=== PATIENT | female | born 1995 | race Caucasian/White ===

== ENCOUNTER 2016-12-20 08:50 | Observation (INO) ==
[2016-12-20] MEDS ORDERED: XYLOCAINE MPF 1% ONE (09:05)
[2016-12-20 09:10] LABS: MANUAL DIFF NEEDED? NO
[2016-12-20 09:29] LABS: BASO% 0.6 % (0.0-0.8); EOS# 0.21 X1000 (0.0-0.7); EOS% 2.4 % (0.0-10.0); HEMATOCRIT 39.3 % (37.0-47.0); HEMOGLOBIN 13.1 g/dL (12.0-16.0); IMM GRAN# 0.01 X1000 (0.0-0.04); IMM GRAN% 0.1 % (0.0-0.5); LYMPH# 2.78 X1000 (1.2-3.4); LYMPH% 31.9 % (20.5-51.1); MCH 28.8 PG (27-31); MCHC 33.3 g/dL (33-37); MCV 86.4 FL (81-99); MONO# 0.91 X1000 (0.11-0.59); MONO% 10.4 % (1.7-9.3); MPV 10.1 FL (7.4-10.4); NEUT% 54.6 % (42.2-75.2); PLT 303 X1000 (130-400); RBC 4.55 XMIL (4.2-5.4)
[2016-12-20 09:34] LABS: AGAP 9; ALBUMIN 4.4 g/dL (3.5-5.0); ALKALINE PHOSPHATASE 71 U/L (32-104); BUN 8 mg/dL (8-22); CALCIUM 8.7 mg/dL (8.8-10.2); CHLORIDE 99 mmol/L (98-107); COSMO 270; GOT 20 U/L (10-30); GPT 14 U/L (10-36); POTASSIUM 3.4 mmol/L (3.5-5.1); SODIUM 137 mmol/L (136-145); TCO2 29 mmol/L (25-35); TOTAL PROTEIN 7.4 g/dL (6.3-8.3)
[2016-12-20 09:45] LABS: FREE T4 1.19 ng/dL (0.93-1.70)
[2016-12-20] MEDS ORDERED: NS 1,000 ML IV ONE ×3 (09:58→11:49)
[2016-12-20] MEDS ORDERED: ZOFRAN PO PRN (09:58)
[2016-12-20 10:33] LABS: ACETAMINOPHEN < 1.2 ug/mL (10-30)
[2016-12-20] MEDS ORDERED: ZOFRAN ODT PO PRN (11:56)
--- NOTE | 2016-12-20 15:02 | HISTORY AND PHYSICAL ---
PRIMARY CARE PHYSICIAN: Mikala Ji. CHIEF COMPLAINT: Of a suicidal attempt via drug overdose and self-inflicted lacerations to her right arm, left arm and right leg. HISTORY OF PRESENTING ILLNESS: This is a 21-year-old female who presented to the ER via EMS after she was found in the bathtub by her mom with self-inflicted razor blade lacerations to her right arm, left arm and right leg. The patient states that this was a suicide attempt. She took 40 0.5 mg Xanax that she got from a friend. Also stated that she "smoked crack" approximately 6 hours prior to arrival. She states she has had a long history and stark with major depression and she takes Paxil and Lamictal and states that she has been taking those as prescribed. So she had the areas to her right arm, left arm and right leg sutured in the emergency room. They are currently covered with a dry dressing. She is lethargic but alert and answering questions appropriately and being admitted to the intensive care unit for further evaluation and treatment. PAST MEDICAL HISTORY: Of major depressive disorder and GERD. PAST SURGICAL HISTORY: None. FAMILY HISTORY: Her mom had major depressive disorder also. SOCIAL HISTORY: She currently lives with family. ALLERGIES: Hydrocodone. HOME MEDICATIONS: She takes bupropion 100 mg p.o. daily, Prozac 40 mg p.o. daily and Lamictal 150 mg p.o. daily. We will begin those in the a.m. LABORATORY DATA: Showed a white blood cell count of 8.72, hemoglobin 13.1, hematocrit 39.3, platelets 303,000. Sodium of 137, potassium 3.4, chloride 99, CO2 29, BUN of 8 creatinine 0.8, glucose 66, TSH of 4.12, free T4 of 1.19. Salicylate level was less than 3. Acetaminophen level less than 1.2. Serum alcohol level showed none detected. REVIEW OF SYSTEMS: She denied any fever, chills, blurred vision, dizziness, chest pain, coughing, shortness of breath. She denies any constipation, diarrhea, burning or hurting with urination. PHYSICAL EXAMINATION: VITAL SIGNS: Temperature 97.2 degrees, pulse 68, respirations 18, blood pressure was 94/61 saturating 96% on room air. GENERAL: This is a 21-year-old female who is lying in the bed, answers questions appropriately but is noted to be lethargic. HEENT: Normocephalic, atraumatic. Pupils are equal, round, reactive to light but are dilated at this time. The extraocular movements are intact. The oropharynx and nares are clear. NECK: Supple. LUNGS: Clear to auscultation bilaterally with equal lung expansion and chest wall movement. HEART: With regular rate and rhythm. No murmurs, rubs, or gallops. ABDOMEN: Soft, nontender, nondistended. Bowel sounds are present x4 quadrants. EXTREMITIES: No clubbing, cyanosis. She has sutures to her right forearm, left forearm and right thigh. Dressing currently dry and intact. NEUROLOGICAL: The cranial nerves 2-12 appear grossly intact. ASSESSMENT: 1. Drug overdose. 2. Suicide attempt. 3. Multiple self-inflicted lacerations. 4. Major depressive disorder. PLAN: She was admitted to the Intensive Care Unit at [facility], placed on O2 per protocol. Regular diet. We are going to check a urine drug screen, a urine test. Place her on normal saline at 150 mL an hour. She received 1 mL of normal saline in the ER. Will start her home medications tomorrow and we will consult [facility] tomorrow after we ensure that she is medically stable. Dictated by KESHIA Edmonds for Edmar Simons MD cc: KESHIA Trinidad MD
[2016-12-20 17:58] LABS: BILIRUBIN URINE NEGATIVE (NEGATIVE); BLOOD URINE NEGATIVE (NEGATIVE); CLARITY CLEAR (CLEAR); COLOR YELLOW; GLUCOSE URINE NEGATIVE (NEGATIVE); LEUKOCYTES URINE 1+ (NEGATIVE); NITRITE URINE NEGATIVE (NEGATIVE); PH URINE 6.5; PROTEIN URINE TRACE mg/dL (NEGATIVE); SP GRAVITY URINE 1.015; UR AMPHETAMINES QUAL NONE DETECTED (NONE DETECT); UR BARBITUATES QUAL NONE DETECTED (NONE DETECT); UR BENZODIAZEPIN QUAL PRESUMPTIVE POSITIVE (NONE DETECT); UR CANNABINOIDS QUAL PRESUMPTIVE POSITIVE (NONE DETECT); UR COCAINE QUAL PRESUMPTIVE POSITIVE (NONE DETECT); UR MDMA QUAL NONE DETECTED (NONE DETECT); UR METHADONE QUAL NONE DETECTED (NONE DETECT); UR METHAMPHETAMINE QUAL NONE DETECTED (NONE DETECT); UR OPIATES QUAL NONE DETECTED (NONE DETECT); UR OXYCODONE QUAL NONE DETECTED (NONE DETECT); UR PCP QUAL NONE DETECTED (NONE DETECT); UR TCA QUAL NONE DETECTED (NONE DETECT); UROBILINOGEN URINE NORMAL
[2016-12-20 17:59] LABS: URINE CULTURE PL NEEDED? YES; URINE EPITHELIAL CELLS <10 /HPF (<10); URINE SOURCE CLEAN CATCH; URINE WBC <10 /HPF (<10)
[2016-12-21] MEDS: LAMICTAL PO SCH (08:38)
[2016-12-21] MEDS: PROZAC PO SCH (08:39)
[2016-12-21] MEDS: WELLBUTRIN PO SCH (08:39)
[2016-12-21 15:05] LABS: AGAP 9; ALBUMIN 3.7 g/dL (3.5-5.0); ALKALINE PHOSPHATASE 61 U/L (32-104); BUN 7 mg/dL (8-22); CALCIUM 8.3 mg/dL (8.8-10.2); CHLORIDE 105 mmol/L (98-107); COSMO 279; GOT 16 U/L (10-30); GPT 12 U/L (10-36); SODIUM 141 mmol/L (136-145); TCO2 27 mmol/L (25-35); TOTAL BILIRUBIN < 0.15 mg/dL (0.20-1.00); TOTAL PROTEIN 6.2 g/dL (6.3-8.3)
[2016-12-22] MEDS: WELLBUTRIN PO SCH (08:07)
[2016-12-22] MEDS: LAMICTAL PO SCH (08:07)
[2016-12-22] MEDS: PROZAC PO SCH (08:07)
--- NOTE | 2016-12-22 08:33 | PROGRESS NOTE ---
DATE: 12/21/2016 SUBJECTIVE: Patient without any new complaints. States that her arms hurt and her legs hurt from where she has multiple lacerations. PHYSICAL: Vital Signs: Temperature 98, pulse 77, respiratory 17, BP 99/66 sat 97% on room air. General: Patient is awake, alert, oriented. She is currently in no respiratory distress. Speech is regular. Memory intact. Neck: Supple. CV: Regular rate. Chest: Clear, nonlabored. Abdomen: Soft. Extremities: Moves all extremities. LABORATORIES: Stable. ASSESSMENT: 1. Acute depression. 2. Acute suicide attempt. 3. Acute drug overdose. 4. Lacerations that are well-approximated on her arms and legs. PLAN: The patient currently is stable. She apparently had smoked crack several hours prior to arrival to arriving to the hospital with a long history of depression. She notes that she no longer wants to live. We will consult [facility] as patient certainly has self- inflicted lacerations that probably are drug-filled, but also read secondary to her depression which is the actual reason that she used drugs yesterday. We will transfer to [facility] when bed is available. cc: Edmar Simons MD
--- NOTE | 2016-12-22 11:30 | DISCHARGE SUMMARY ---
ADMISSION DATE: 12/20/2016 DISCHARGE DATE: 12/22/2016 DIAGNOSES: 1. Acute depression. 2. Acute suicide attempt. 3. Acute drug overdose. 4. Lacerations that are well approximated on her arms and legs. HOSPITAL COURSE: Ms. Augustine presented to the emergency room after being found in the bathtub by her mother with self-inflicted razor blade lacerations to her right arm, left arm, and right leg. She did state that this was a suicide attempt. She stated that she took 40 of 0.5 mg Xanax that she got from a friend as well as smoking crack about 6 hours prior to coming to the ER. Areas to the right arm, left arm, and right leg were sutured in the emergency room. She was admitted to ICU. She received IV hydration as well as close monitoring. She was evaluated by [facility] [place] who felt that the patient did meet criteria for inpatient. As she is medically stable, she will be transferred to [facility]. DISCHARGE PHYSICAL EXAMINATION: Cardiovascular: Regular rate and rhythm. S1 and S2 are appreciated. Pulmonary: Breath sounds are clear with no increased work of breathing noted. Gastrointestinal: Abdomen is soft, nontender, nondistended. Bowel sounds in all 4 quadrants. Back: No CVAT. No spine tenderness. Extremities: No clubbing, cyanosis, or edema. She does have dressings intact to both arms and leg. DISCHARGE MEDICATIONS: Wellbutrin 100 mg p.o. daily, Prozac 40 mg p.o. daily, Lamictal 150 p.o. daily. DISCHARGE ACTIVITY: As tolerated. DISCHARGE DIET: Regular. DISPOSITION: She is being discharged to [facility] [place] via EMS transport in stable condition. This is a greater than 30 minute discharge from 10:30 to 11:05. Dictated by KESHIA Echavarria for Edmar Simons MD cc: KESHIA Echavarria MD
[2016-12-22 13:30] VITALS: BP 99/51
--- NOTE | 2016-12-24 20:49 | PROVIDER DOCUMENTATION ---
This chart was entered by Nora Duarte Scribe, acting as scribe for Miguel Martin MD. [id number] Abuse/Overdose - General Chief Complaint: Suicide Attempt Stated Complaint: suicide attempt Time Seen by Provider: 12/20/16 09:03 Source: patient Allergies/Adverse Reactions: Allergies Allergy/AdvReac Type Severity Reaction Status Date / Time hydrocodone Allergy ITCHING Verified 07/23/15 07:56 Home Medications: Home Medication List Medication Instructions Recorded Confirmed Last Taken Type Fluoxetine HCl [Prozac] 40 mg PO DAILY 02/17/15 12/22/16 12/22/16 08:00 History Lamotrigine [Lamictal] 150 mg PO DAILY 02/17/15 12/22/16 12/22/16 08:00 History Bupropion HCl 100 mg PO DAILY 12/20/16 12/22/16 12/22/16 08:00 History - History of Present Illness-Drug/Alcohol Nature of Presenting Problem: 21 yo F presents to the ER via EMS with suicide attempt. Pt states she took 40 0.5mg Xanax, states the medication was not hers and she cannot be completely sure it was actually Xanax. Pt was found in the bathtub with self inflicted razor blade lacerations to R arm, L arm, and R leg. Also states she "smoked crack" 6 hours [employer]. Pt is lethargic, but oriented x3 and responding to questions. This episode of drinking or use began:: this morning - Substance Abuse Substance Use: reports: benzodiazepines, cocaine - Overdose Intentional drug overdose?: Yes List substance(s) ingested.: 40 0.5mg Xanax Review of Systems - Adult - REVIEW OF SYSTEMS - ADULT Constitutional: denies: chills, fever Eyes: reports: no symptoms reported Ears, Nose, Mouth & Throat: reports: no symptoms reported Cardiovascular: denies: chest pain, palpitations Respiratory: denies: cough, shortness of breath Gastrointestinal: denies: diarrhea, nausea, vomiting Genitourinary: reports: no symptoms reported Musculoskeletal: denies: joint pain, joint swelling Integumentary: reports: no symptoms reported Neurological: reports: no symptoms reported Psychiatric: reports: see HPI, alcohol/drug dependence, suicidal thoughts Endocrine: reports: no symptoms reported Hematologic/Lymphatic: reports: no symptoms reported Allergic/Immunologic: reports: no symptoms reported All Other Systems: Reviewed and Negative Past History - Adult - PAST MEDICAL HISTORY-ADULT Review of Records: reports: Nursing Assessment Review, Medications Reviewed Gastrointestinal: reports: GERD Psychiatric: reports: psychiatric problems, suicide attempt - PRIOR SURGERIES/PROCEDURES Surgical/Procedure History: reports: reviewed, not pertinent - PRIOR HOSPITALIZATIONS Prior Hospitalizations: reports: none - IMMUNIZATION STATUS Childhood Immunizations: See Nurse Assessment Flu Vaccine: See Nurse Assessment Physical Exam-General - PHYSICAL EXAM-ADULT Initial Vital Signs Reviewed: Yes - CONSTITUTIONAL General Appearance: alert, lethargic, slow to respond - EYES Eyes: PERRL/EOMI, pink conjunctivae - HEAD, EARS, NOSE, MOUTH & THROAT HENMT: normocephalic/atraumatic, normal ENT inspection - NECK Neck: supple, normal inspection - RESPIRATORY Respiratory: no respiratory distress, no accessory muscle use - CARDIOVASCULAR Cardiovascular: normal peripheral pulses, regular rate, rhythm - GASTROINTESTINAL (ABDOMEN) Abdominal Exam: non tender, soft - MUSCULOSKELETAL Back Exam: no CVA tenderness, no vertebral tenderness Extremity: normal range of motion, non-tender, normal gait, normal inspection - SKIN Integumentary: warm/dry, laceration(s) - NEUROLOGIC Neurologic: grossly normal, no motor/sensory deficits - PSYCHIATRIC Psych/Mental Status: oriented x 3, tearful Progress - PLAN OF CARE/RESULTS Result Diagrams: 12/20/16 07:18 12/21/16 14:37 - CONSULTS/PCP/HOSPITALIST Notification #1 *Consult/PCP/Hospitalist*: Dr. Simons Time Discussed: 09:56 Consult Disposition: Admit Procedures - LACERATION/WOUND REPAIR/FB Left Forearm Wound Location: Other: lateral Wound Length: in Wound's Depth, Shape: superficial (into fat) Wound Explored/Foreign Body: clean Prepped with: Betadine Anesthetic: 1%, Lidocaine/Xylocaine Volume of Anesthetic (ml's): 3 Wound Repaired with: Sutures Suture Size/Type: 4.0, Nylon Number of Sutures: 14 Post Procedure Neurovascular Exam: Intact Left See Other Wound Location: Other: medial L forearm Wound Length: 1.5 Wound's Depth, Shape: superficial Prepped with: Betadine Anesthetic: 1%, Lidocaine/Xylocaine Volume of Anesthetic (ml's): 1 Wound Repaired with: Sutures Suture Size/Type: 4.0, Nylon Number of Sutures: 4 Post Procedure Neurovascular Exam: Intact Left Medial Forearm Wound Length: 1.5 in Wound's Depth, Shape: superficial Wound Explored/Foreign Body: clean Prepped with: Betadine Anesthetic: 1%, Lidocaine/Xylocaine Volume of Anesthetic (ml's): 1 Wound Repaired with: Sutures Suture Size/Type: 4.0, Nylon Number of Sutures: 4 Post Procedure Neurovascular Exam: Intact Right Forearm Wound Length: 4in Wound's Depth, Shape: superficial Prepped with: Betadine Anesthetic: 1%, Lidocaine/Xylocaine Wound Repaired with: Sutures Suture Size/Type: 4.0, Nylon Number of Sutures: 8 Post Procedure Neurovascular Exam: Intact Right Upper Forearm Wound Length: 1in Wound's Depth, Shape: superficial Prepped with: Betadine Anesthetic: 1%, Lidocaine/Xylocaine Wound Repaired with: Sutures Suture Size/Type: 4.0, Nylon Number of Sutures: 2 Post Procedure Neurovascular Exam: Intact Right Lower Medial Forearm Wound Length: 1in Wound's Depth, Shape: superficial Anesthetic: 1%, Lidocaine/Xylocaine Wound Repaired with: Sutures Suture Size/Type: 4.0, Nylon Number of Sutures: 3 Post Procedure Neurovascular Exam: Intact Right Lower Lateral Forearm Wound Length: 1in Prepped with: Betadine Anesthetic: 1%, Lidocaine/Xylocaine Wound Repaired with: Sutures Suture Size/Type: 4.0, Nylon Number of Sutures: 3 Right Lateral Forearm Wound Length: 2.5in Wound's Depth, Shape: superficial Prepped with: Betadine Anesthetic: 1%, Lidocaine/Xylocaine Wound Repaired with: Sutures Suture Size/Type: 4.0, Nylon Number of Sutures: 5 Post Procedure Neurovascular Exam: Intact Right Lateral See Other Wound Location: Other: lateral forearm Wound Length: 2in Wound's Depth, Shape: superficial Anesthetic: 1%, Lidocaine/Xylocaine Wound Repaired with: Sutures Suture Size/Type: 4.0, Nylon Number of Sutures: 3 Post Procedure Neurovascular Exam: Intact Right Lateral Thigh Wound Length: 3in Wound's Depth, Shape: superficial Prepped with: Betadine Anesthetic: 1%, Lidocaine/Xylocaine Wound Repaired with: Sutures Suture Size/Type: 4.0, Nylon Number of Sutures: 6 Post Procedure Neurovascular Exam: Intact Departure - Departure Date of Disposition Decision: 12/20/16 Time of Disposition Decision: 09:58 DIAGNOSIS: Suicidal ideations Overdose Qualifiers: Encounter type: initial encounter Injury intent: intentional self-harm Qualified Code(s): T50.902A - Poisoning by unspecified drugs, medicaments and biological substances, intentional self-harm, initial encounter Disposition: ADMITTED INPATIENT 09 Certified Medical Emergency: Emergent Condition: Stable - Critical Care Note This patient required my direct & personal management of CC.: No This chart was documented by the indicated scribe, (Nora Duarte Scribe) and accurately reflects the services I performed and decisions made by me, Miguel Martin MD, as attested by the provider's signature.
== END 2016-12-22 13:10 ==
LOC: P.ED 08:50 → P.ICU 08:50
PROVIDERS: ATTEND Family Medicine